=== PATIENT | female | born 1935 | race Caucasian/White ===

== ENCOUNTER → 2017-02-04 | Outpatient (CLI) | payer OTHER, MEDICARE ==
[~2017-02-04] VITALS: Ht 165.1 cm; Wt 73.9 kg
[~2017-02-04] MED LIST: ACID CONTROL75 MG PO; ADULT LOW DOSE81 MG PO; ALDACTONE25 MG PO; ASPIRIN EC325 M1 PO; ASPIRIN EC81 M1 PO; CARDIZEM CD 30300 M1 PO; CARDIZEM CD240 MG PO; CEFDINIR300 MG PO; CELEXA40 MG PO; CIPROFLOXACIN500 M1 PO; CLONAZEPAM 0.50.5 M1 PO; CLONAZEPAM 1 MG1 M1 PO; COUMADIN 1MG TAB1 M1 PO; COUMADIN 2.5MG2.5 M1 PO; COUMADIN 5 MG TA5 M1 PO; DILTIAZEM 24HR180 MG PO; DILTIAZEM ER120 M1 PO; ENALAPRIL MALEA10 M1 PO; HYDROCODON-ACE1 EAC8 PO; HYDROCODONE-AP1 EA11 PO; LEVAQUIN 500 M500 M2 PO; LEVOTHYROXINE 0.1 MG PO; MELOXICAM7.5 MG PO; METOPROLOL SUCC25 M1 PO; MOBIC15 MG PO; NABUMETONE 500500 M1 PO; NORCO 10-325 T1 EACH PO; NORCO 5-325 TA1 EACH PO; NORCO 7.5-3251 EACH PO; OMEPRAZOLE 20 M20 MG PO; PACERONE 200 M200 M1 PO; PACERONE 200 M200 MG PO; PAXIL10 MG; PERCOCET 10-321 EACH PO; PERCOCET 5-3251 EACH PO; PRAVACHOL40 MG PO; PREDNISONE 10 M10 MG PO; PROZAC 10 MG CA10 M1 PO; RESTORIL30 MG PO; SAVAYSA15 MG PO; SYMBICORT160 MCG/4. INH; TUMS PO; VASOTEC10 MG PO; VITAMIN B-12500 MCG PO; VITAMIN D1000 UNI1 PO; ZOLOFT100 MG PO; [UNRECOGNIZED DRUG - OTHER]; [UNRECOGNIZED DRUG - OTHER] PO
--- NOTE | ~2017-02-04 | HPC ---
[facility] [place] [address] PAIN MANAGEMENT CONSULTATION Name: PERLA RIOS Room #: REG EDGAR Zapata#: [id number] Admission: 02/04/17 Attend Phys: Sorin Fu DO Discharge: Date of : 35 Report #: [id number] THIS REPORT FOR: //name// CC: Keith Fu HISTORY OF PRESENT ILLNESS: The patient is an 81-year-old female, prior seen in the pain clinic 10/11/2016 being treated for lumbosacral spondylosis, SI joint dysfunction requiring complex medication management. She was continued on hydrocodone 10/325 one tablet 2-3 times a day, limit 60 tablets, given bilateral SI joint injections. She prior had bilateral SI joint injections back in 12/2015. She is sent to physical therapy for core strengthening. She returns to pain clinic today. We had a prolonged visit from 12:45-13:15. Ultimately taken to the procedure room at 13:16. The patient notes several things have changed since we last saw her. She is having some curious loss of balance and vertigo. She does not report presyncopal type symptoms, but notes she fell a week ago. Does have ecchymosis on left shoulder, some exacerbation of back pain. She notes her right ankle feels numb. She rates her pain at 10 on a 0-10 visual analog scale, sharp, aching, burning, again primarily low back, right leg with some pain in the left shoulder as well. PHYSICAL EXAMINATION: GENERAL: Shows 81-year-old female, BMI is 27.1 kilograms per meter squared. VITAL SIGNS: Stable as noted in the EMR. NEUROLOGIC: Cranial 2-12 are grossly intact. EYES: Pupils equal, reactive to light and accommodation. Extraocular muscles are intact. I can elicit no nystagmus; however, when the patient stands she starts to have a little bit of drift with her arms extended and eyes closed, she easily loses balance. Gait is a little bit ataxic. Lower extremity strength remains generally preserved. Very tender over the SI joints with positive Felix test bilaterally. Little tender in the midline, but nothing specifically compatible with what I would expect to see with an acute compression fracture. Concern for pelvic fracture with the following increasing pain though palpation over the ischial tuberosity do not exacerbate pain and movement of the SI joints does exacerbate pain. Lower extremity strength is diminished, but symmetric. ASSESSMENT: Lumbosacral spondylosis, SI joint dysfunction, chronic pain syndrome requiring complex medication management. The patient has started to take hydrocodone a little more aggressively requiring 2 tablets at a time. RECOMMENDATIONS: 1. X-ray of the pelvis to [place] [address] PAIN MANAGEMENT CONSULTATION Name: BLANCAPERLA Room #: REG EDGAR Zapata#: [id number] Admission: 02/04/17 Attend Phys: Sorin Fu DO Discharge: Date of : 35 Report #: [id number] 2. We will refer to Dr. Kelly for evaluation of this concerning loss of balance, ataxia and falls. 3. Trial opiate rotation from hydrocodone 10/325 to Percocet 10/325, limit 75 tablets, demand the patient only take 1 tablet q. 4-6 hours, not 2 tablets at a time. 4. Bilateral SI joint injection under fluoroscopy today. Resume anticoagulant. She has been off this for 2 days. We would like to see patient back in 2 weeks for reevaluation. We will have her hold for Xeralto for 2 days prior to that office visit, we may consider caudal injection if indicated. We will review diagnostic findings at that time. Hopefully, she will get in to see Dr. Kelly to evaluate the untoward balance issues and ataxia. ASSESSMENT: Bilateral SI joint dysfunction. PROCEDURE: Bilateral SI joint injections under fluoroscopy. PROCEDURE NOTE: After written and informed consent was obtained including risk of infection, nerve trauma, increased pain and weakness, the patient wishes to proceed. The patient was taken to the fluoroscopy suite, placed in the prone position. The sacroiliac joint was visualized using the C-arm, turned in an oblique fashion to align the joint. The skin overlying the area was cleansed with ChloraPrep. Skin wheal with Xylocaine was raised. A 22 gauge spinal needle was inserted into the inferior aspect of the joint. A low volume extension tubing was then attached to the needle after the stylet was removed. Negative aspiration was accomplished. A 1 mL of Omnipaque was injected which showed spread within the SI joint. 40 mg triamcinolone plus 2 mL of 0.5% preservative-free bupivacaine was injected into the joint. Needle was removed. Attention was then turned to the contralateral joint which was treated in an identical fashion. After both needles were removed the prep was washed off. Two Band-Aids were applied over the puncture sites. The patient was allowed to ambulate to the recovery room, monitored for an appropriate period of time, discharged in good and stable condition. <ELECTRONICALLY SIGNED> By: Sorin Fu DO 02/06/17 0736 [id number] Sorin Fu DO /nt
[2017-02-04 12:41] VITALS: BP 128/80
== END ==
LOC: PAIN 07:13
DX: M53.3 Sacrococcygeal disorders, not elsewhere classified (principal); M47.817 Spondylosis without myelopathy or radiculopathy, lumbosacral region; G89.4 Chronic pain syndrome; I10 Essential (primary) hypertension; Z87.891 Personal history of nicotine dependence
CPT/HCPCS: G0260

== ENCOUNTER → 2017-02-18 | Outpatient (CLI) | payer OTHER, MEDICARE ==
[~2017-02-18] VITALS: Ht 167.6 cm; Wt 73.9 kg
--- NOTE | ~2017-02-18 | HPC ---
[facility] [place] [address] PAIN MANAGEMENT CONSULTATION Name: PERLA RIOS Room #: REG EDGAR Zapata#: [id number] Admission: 02/18/17 Attend Phys: Sorin Fu DO Discharge: Date of : 35 Report #: [id number] THIS REPORT FOR: //name// CC: Keith Fu The patient is an 81-year-old female well known to the pain clinic, being treated for lumbosacral spondylosis, lumbar radiculopathy secondary to spinal stenosis, component of ataxia, requiring complex medication management. Last seen in pain clinic 02/04/2017. We continued opiate pain medication. We switch, however, from hydrocodone to oxycodone, limit #75 tablets for 30 days. She was given bilateral SI joint injections at that time. ____ caudal injection under fluoroscopy today. In the interval since I last saw her, she was seen in the ER 02/14/2017 having fallen. She had a closed head injury, but no pathology was noted on diagnostic studies. The ER reports that she may have been taking oxycodone and hydrocodone. The patient notes that this is a completely incorrect. She stopped taking hydrocodone and in fact has none of those tablets, it is taking oxycodone overall for pain. She notes pain remains problematic in the low back radiating into the buttocks. We do want him to move forward with the caudal injection, but she forgot to stop her blood thinner. I have given a referral to Dr. Kelly for evaluation of ataxia. Given that they have not call her back in 4 weeks, I gave her referral to neurology for evaluation of ataxia. I will plan on moving forward with a caudal injection under fluoroscopy, off Savaysa for 3 days. PHYSICAL EXAMINATION: Shows an 81-year-old female, BMI is 26.3 kilograms per meter squared. Vital signs stable as noted in the EMR. Rises from chair using armrest. Diffuse tenderness across the low back. Does have still moderate ataxia, positive straight leg raise bilaterally, diffuse tenderness across the low back. X-rays of the pelvis 02/04/2017, following the patient's prior fall show no acute osseous pathology, she does have some chest wall pain. Fortunately, there are no rib fractures. ASSESSMENT: Symptomatic lumbar radiculopathy secondary to spinal stenosis. RECOMMENDATION: Proceed with epidural injection under fluoroscopy (____) off Savaysa 3 days. By: [id number] Sorin Fu, /nt
[2017-02-18 13:00] VITALS: BP 162/81
== END | disposition home or self-care (01) ==
LOC: PAIN 06:52
DX: M48.06 Spinal stenosis, lumbar region (principal); G89.29 Other chronic pain; M47.27 Other spondylosis with radiculopathy, lumbosacral region; F11.20 Opioid dependence, uncomplicated; Z87.891 Personal history of nicotine dependence

== ENCOUNTER → 2017-02-22 | Outpatient (CLI) | payer OTHER, MEDICARE ==
[~2017-02-22] VITALS: Ht 152.4 cm; Wt 72.8 kg
--- NOTE | ~2017-02-22 | HPC ---
[facility] [address] [place] [address] PAIN MANAGEMENT CONSULTATION Name: PERLA RIOS Room #: REG LUIGIMamta Zapata#: [id number] Admission: 02/22/17 Attend Phys: Sorin Fu DO Discharge: Date of : 35 Report #: [id number] THIS REPORT FOR: //name// CC: Keith Fu HISTORY OF PRESENT ILLNESS: The patient is a pleasant 81-year-old female typically treated for lumbar radiculopathy secondary to spinal stenosis, component of lumbosacral spondylosis and concern for increasing ataxia. I had recommended the patient follow up with Dr. Kelly for evaluation of her ataxia. She tells me she feels like she is falling forward, she starts to walk faster to try and catch herself and has fallen multiple times. I have given her balance exercises to do, but she appears to have a central process that I would like to get evaluated. Unfortunately, she has not heard back from Dr. Kelly's office. If she has not heard from Dr. Kelly's office in 1 month, I have suggested she try [facility]. She has not heard back from them either. I have requested last month and again today that dictations go to Dr. Kelly's office. Today, my nurse did specifically faxed to Dr. Kelly's office our 02/18/2017 electronic medical record. I will again request that she follow up for consideration for evaluation for vertigo and ataxia. The patient does have a history of closed head injuries subsequent to a fall on 02/14/2017. ER reports no pathology on diagnostic studies. The patient presents to pain clinic today for prior authorized Caudal epidural injection under fluoroscopy for lumbar radicular pain. The patient has been off Savaysa for 3 days. PHYSICAL EXAMINATION: Again shows pleasant 81-year-old female. No nystagmus, but subjective ataxia. Ongoing pain she rates 5 on a 0-10 visual analog scale, low back, buttocks, right greater than left. ASSESSMENT AND RECOMMENDATIONS: 1. 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 Recommendation: Referred to Dr. Kelly, neurology for further evaluation. I did discuss balance exercises again today. 2. Exacerbation of lumbar spinal stenosis. Recommendation: Caudal epidural injection under fluoroscopy. PROCEDURE NOTE: After written and informed consent was obtained, the patient was taken to fluoroscopy suite, placed in prone position. After sterile prep and drape, skin wheal was raised. A 22-gauge stylet needle was placed to the sacral hiatus in the caudal epidural space. Negative aspiration was accomplished. Triamcinolone 80 mg plus 5 mL of 1% preservative-free Xylocaine was injected. Needle was removed. The area was cleansed, Band-Aids applied. The patient was told to resume Savaysa today. Follow up in 30 days to evaluate efficacy. Contact Dr. Kelly's office next week for appointment. [address] [address] PAIN MANAGEMENT CONSULTATION Name: PERLA RIOS Room #: REG CLMamta Zapata#: [id number] Admission: 02/22/17 Attend Phys: Sorin Fu DO Discharge: Date of : 35 Report #: [id number] I am pleased to note the patient had significant at least transient improvement following the injection, noting her pain was absent on discharge. I pointed out this is likely effect of the local anesthetic. This will recede, we did expect effect of steroid to start within 72 hours. Hopefully, she will start to see some longer lasting ongoing relief at that point. <ELECTRONICALLY SIGNED> By: Sorin Fu DO 02/25/17 0750 1542 0113 Sorin Fu DO /nt
[2017-02-22 12:55] VITALS: BP 172/82
== END | disposition home or self-care (01) ==
LOC: PAIN 07:16
DX: M54.16 Radiculopathy, lumbar region (principal); M48.06 Spinal stenosis, lumbar region; M47.817 Spondylosis without myelopathy or radiculopathy, lumbosacral region; R27.0 Ataxia, unspecified

== ENCOUNTER → 2017-03-07 | Outpatient (CLI) | payer OTHER, MEDICARE | LOC: MRI 13:59 | DX: M54.12 Radiculopathy, cervical region (principal); M54.2 Cervicalgia; R26.0 Ataxic gait ==

== ENCOUNTER → 2017-04-05 | Outpatient (CLI) | payer OTHER, MEDICARE ==
[~2017-04-05] VITALS: Ht 162.6 cm; Wt 72.1 kg
[~2017-04-05] MED LIST changes: +NORCO 10-325 T1 EAC1 PO; +PROZAC10 MG PO; +TRAZODONE HCL100 MG PO
--- NOTE | ~2017-04-05 | HPC ---
[facility] [place] [address] PAIN MANAGEMENT CONSULTATION Name: PERLA RIOS Room #: REG EDGAR Jodi#: [id number] Admission: 04/05/17 Attend Phys: Sorin Fu DO Discharge: Date of : 35 Report #: [id number] THIS REPORT FOR: //name// CC: Keith Fu HISTORY OF PRESENT ILLNESS: The patient is a very pleasant 81-year-old female who unfortunately is having some trouble with ongoing lumbar radicular pain. She had fallen with exacerbation of back pain. I gave her an epidural injection via caudal approach on 02/22/2017 with very good, yet short-term relief. In the interval since we last saw her, she finally got in to see Dr. Kelly actually earlier today. He currently saw her as a walk-in patient. He reviewed all the diagnostic studies and unfortunately feels that likely cause of her ataxia is central and may be a component of Alzheimer's. The patient is little tearful today, frustrated, noting ongoing back pain remains problematic. Pain is in the low back, right hip and leg. PHYSICAL EXAMINATION: Shows an 81-year-old female, BMI is 27.3 kilograms per meter squared. Rises from chair using armrest, modestly antalgic gait. Vital signs are stable. Right leg shows diminished strength compared to left, modestly positive straight leg raise on the right. ASSESSMENT: Symptomatic lumbar radiculopathy. RECOMMENDATIONS: Epidural injection under fluoroscopy today, we will try midline approach, right midline at L5-S1. Follow up in 4 weeks for reevaluation, cancel if doing well. PROCEDURE: Lumbar epidural injection under fluoroscopy. PROCEDURE NOTE: After both written and informed consent to include risk of spinal cord damage, increased pain, weakness and dural puncture, the patient was taken to the fluoroscopy suite, placed in the prone position. After sterile prep and drape, a skin wheal with lidocaine was raised. A 22-gauge epidural Tuohy needle was inserted in the midline at L5-S1 with good loss to resistance. Negative aspiration for cerebrospinal fluid or blood was noted. Then 1 mL of Omnipaque under biplanar fluoroscopy showed good spread within the epidural space. This was followed with 80 mg of triamcinolone plus 1 mL of 1.5% preservative-free Xylocaine, 0.5 mL Xylocaine was then injected to flush the needle; it was removed. The patient was monitored for an appropriate period of time and discharged in good and stable condition. By: [id number] Sorin Fu DO /nt
[2017-04-05 13:48] VITALS: BP 148/68
== END | disposition home or self-care (01) ==
LOC: PAIN 07:12
DX: M54.16 Radiculopathy, lumbar region (principal); G89.29 Other chronic pain; Z87.891 Personal history of nicotine dependence

== ENCOUNTER → 2017-06-17 | Outpatient (CLI) | payer OTHER, MEDICARE ==
[~2017-06-17] VITALS: Ht 162.6 cm; Wt 73.0 kg
--- NOTE | ~2017-06-17 | HPC ---
[facility] [place] [address] PAIN MANAGEMENT CONSULTATION Name: PERLA RIOS Room #: REG LUIGIMamta Zapata#: [id number] Admission: 06/17/17 Attend Phys: Sorin Fu DO Discharge: Date of : 35 Report #: [id number] THIS REPORT FOR: //name// CC: Keith Fu The patient is a very pleasant 81-year-old female typically treated for symptomatic lumbar radiculopathy secondary to spinal stenosis. She was last seen in pain clinic 04/05/2017. Did an epidural injection L5-S1 with good improvement of symptoms. Prior caudal injection really afforded no significant relief. Returns to pain clinic today noting pain from the last injection gave her least 50% relief for about 6 weeks, pain began to recur. She rates her pain; however, 10 at present. She has relocated transiently, she was living with an older daughter, who unfortunately had a brain tumor. It sounds like she had surgery at [facility] and did remarkably well. She was only in the hospital for surgery on Saturday and discharged home on Saturday. Nonetheless, the patient is now living with the younger daughter, giving her older daughter a little time and space at home to recuperate. With physical activity, pain has increased in low back, right hip and leg. Pain is exacerbated with standing, walking and bending. PHYSICAL EXAMINATION: Unchanged from prior visit. GENERAL: This is an 81-year-old female, BMI is 27.6 kilograms per meter squared. VITAL SIGNS: Blood pressure is modestly elevated 173/99, pulse 68, respirations 16. She has been off of her Savaysa now for nearly 7 days. We stressed that she only need to be off about 3 days for injection. We reviewed diagnostic findings noting significant lumbar spondylosis and stenosis. ASSESSMENT: Symptomatic lumbar radiculopathy secondary to spinal stenosis. RECOMMENDATION: Epidural injection under fluoroscopy today at L5-S1. We will renew her hydrocodone 10/325 one tablet 3-4 times a day, limit 100 tablets for 30 days. Follow up simply as needed, resume Savaysa tonight. PROCEDURE: Lumbar epidural injection under fluoroscopy. PROCEDURE NOTE: After both written and informed consent to include risk of spinal cord damage, increased pain, weakness and dural puncture, the patient was taken to the fluoroscopy suite, placed in the prone position. After sterile prep and drape, a skin wheal with lidocaine was raised. A 22-gauge epidural Tuohy needle was inserted in the midline at L5-S1 with good loss to resistance. [address] [address] PAIN MANAGEMENT CONSULTATION Name: PERLA RIOS Room #: REG [facility] Jodi#: [id number] Admission: 06/17/17 Attend Phys: Sorin Fu DO Discharge: Date of : 35 Report #: [id number] Negative aspiration for cerebrospinal fluid or blood was noted. Then 1 mL of Omnipaque under biplanar fluoroscopy showed good spread within the epidural space. This was followed with 80 mg of triamcinolone plus 1 mL of 1.5% preservative-free Xylocaine, 0.5 mL Xylocaine was then injected to flush the needle; it was removed. The patient was monitored for an appropriate period of time and discharged in good and stable condition. <ELECTRONICALLY SIGNED> By: Sorin Fu DO 06/19/17 0801 [id number] 1349 Sorin Fu DO /nt
[2017-06-17 11:12] VITALS: BP 173/99
== END | disposition home or self-care (01) ==
LOC: PAIN 06:40
DX: M48.06 Spinal stenosis, lumbar region (principal); M47.896 Other spondylosis, lumbar region; G89.29 Other chronic pain; Z87.891 Personal history of nicotine dependence; Z98.890 Other specified postprocedural states

== ENCOUNTER → 2017-07-26 | Outpatient (CLI) | payer OTHER, MEDICARE ==
[~2017-07-26] VITALS: Ht 162.6 cm; Wt 70.8 kg
--- NOTE | ~2017-07-26 | HPC ---
[facility] [address] [place] [address] PAIN MANAGEMENT CONSULTATION Name: PERLA RIOS Room #: REG LUIGIMamta Zapata#: [id number] Admission: 07/26/17 Attend Phys: Sorin Fu DO Discharge: Date of : 35 Report #: [id number] THIS REPORT FOR: //name// CC: Keith Fu HISTORY OF PRESENT ILLNESS: The patient is an 81-year-old female who typically treated for lumbar radiculopathy secondary to spinal stenosis. Comorbidities include some significant issues with ataxia. Last seen in pain clinic on 06/17/2017 with epidural injection at L5-S1. Continued hydrocodone 10/325 up to one tablet 3-4 times a day, limit 100 tablets. The patient prior had a caudal injection with normal efficacy. She notes that the epidural injection at last visit afforded 50% relief, but again for only 1-2 days. She notes pain is primarily in low back and hips, right greater than left. Does have some paresthesia down in the right foot. She notes sharp, aching pain with some burning and numbness. PHYSICAL EXAMINATION: Shows an 81-year-old female, BMI is 26.8 kg/m2. Blood pressure is elevated today at 193/92, pulse 74, respirations 15. Rises from chair using armrest, modestly antalgic gait. Does have tenderness over the SI joints with positive Felix test bilaterally. Lower extremity strength is diminished, but symmetric. Still modestly positive straight leg raise on the right. Lumbar flexion is limited. ASSESSMENT: Lumbar radiculopathy secondary to spinal stenosis, component of ataxia with new diagnosis of sacroiliac mediated pain. RECOMMENDATIONS: 1. Bilateral SI joint injection under fluoroscopy today. 2. Last MRI was from 2008. If the injection today does not afford adequate ongoing relief, we will get a new MRI of the lumbar spine for further evaluation. I did take the liberty of renewing the patient's hydrocodone at 10/325, 100 tablets. Last prescription was generated in March. She uses this fairly infrequently. PROCEDURE: Bilateral SI joint injection under fluoroscopy. PROCEDURE NOTE: After written and informed consent was obtained including risk of infection, nerve trauma, increased pain and weakness, the patient wishes to proceed. The patient was taken to the fluoroscopy suite, placed in the prone position. The sacroiliac joint was visualized using the C-arm, turned in an oblique fashion to align the joint. The skin overlying the area was cleansed with ChloraPrep. Skin wheal with Xylocaine was raised. A 22 gauge spinal needle was inserted into the inferior aspect of the joint. A low volume extension tubing was then attached to the needle after the stylet was removed. [address] [address] PAIN MANAGEMENT CONSULTATION Name: PERLA RIOS Room #: REG EDGAR Zapata#: [id number] Admission: 07/26/17 Attend Phys: Sorin Fu DO Discharge: Date of : 35 Report #: [id number] Negative aspiration was accomplished. A 1 mL of Omnipaque was injected which showed spread within the SI joint. 40 mg triamcinolone plus 2 mL of 0.5% preservative-free bupivacaine was injected into the joint. Needle was removed. Attention was then turned to the contralateral joint which was treated in an identical fashion. After both needles were removed the prep was washed off. Two Band-Aids were applied over the puncture sites. The patient was allowed to ambulate to the recovery room, monitored for an appropriate period of time, discharged in good and stable condition. Fluoroscopy time was under 10 seconds. By: [id number] Sorin Fu DO /nt
[2017-07-26 10:20] VITALS: BP 193/92
== END | disposition home or self-care (01) ==
LOC: PAIN 07:35
DX: M53.3 Sacrococcygeal disorders, not elsewhere classified (principal); M48.06 Spinal stenosis, lumbar region; M54.16 Radiculopathy, lumbar region; R27.0 Ataxia, unspecified; G89.29 Other chronic pain; Z87.891 Personal history of nicotine dependence; Z98.890 Other specified postprocedural states

== ENCOUNTER → 2017-08-08 | Outpatient (CLI) | payer OTHER, MEDICARE | LOC: MRI 14:56 | DX: M48.06 Spinal stenosis, lumbar region (principal); M54.16 Radiculopathy, lumbar region ==

== ENCOUNTER → 2018-01-31 | Outpatient (CLI) | payer OTHER, MEDICARE ==
[~2018-01-31] VITALS: Ht 162.6 cm; Wt 72.0 kg
[~2018-01-31] MED LIST changes: +AMBIEN 5 MG TABL5 MG PO; +ELIQUIS5 MG PO; +TENORMIN25 MG PO
--- NOTE | ~2018-01-31 | HPC ---
Formerly [facility] [place] [address] [place] [address] PAIN MANAGEMENT CONSULTATION Name: PERLA RIOS Room #: REG EDGAR Zapata#: [id number] Admission: 01/31/18 Attend Phys: Sorin Fu DO Discharge: Date of : 35 Report #: [id number] THIS REPORT FOR: //name// CC: Keith Fu The patient is an 82-year-old female last seen in the pain clinic back in September. She was given a prescription for hydrocodone 10/325, 100 tablets, 4 released at that time and a 4-week release prescription. Those 200 tablets have lasted these past 4 months. She uses 1 or 2 hydrocodone a day for ongoing pain concerns. She returns to pain clinic today noting pain is in primarily right hip, leg and foot. She notes it is chronic aching, rates it 3-4 on a VAS, exacerbated with standing and walking. Gets some relief with sitting and resting. She actually looks better than she has in some time. She had been quite sick, but she has done a lot of physical therapy. She presents to pain clinic today in the presence of her daughter who is supportive. She tells me sadly that her dog she had for 14-1/2 years had to be put down due to a cancer, but she is introspective about this, noting that the dog gave her good friendship and she loved the dog. She is living with one of her daughters. She lives in the second floor and she noted that when she had been sick late last year, she was unable to take the dog outside, so she is not desirous of getting another dog. Otherwise, again she looks alert and oriented. She appears much more upbeat than she has in the past. BMI is 27.2 kilograms per meter squared. Blood pressure 149/76, pulse 71, respirations 18. Subjective pain score is only 3-4 on a VAS, which is low for her. She uses a cane for balance. She has not fallen since we last saw her. She is on Savaysa for history of blood clots. She is hypertensive as well. Medication list was reconciled. She has been on opiate therapy for greater than 6 months. Again, uses hydrocodone 0-3 a day. Rises from chair using armrest. Gait is tandem. Lower extremity strength is preserved. Little diffuse tenderness across the low back. I had prior treated for SI mediated pain. That is actually fairly nominal at this time We reviewed the fact that opiate medications are being used to provide analgesia adequate to support activities of daily living, not attempting to achieve a specific pain score on the 0-10 Visual Analog Scale. The current opiate medications are providing sufficient analgesia to allow the patient to participate in activities of daily living. The patient is not exhibiting any aberrant behavior suggestive of drug diversion. The patient is not having any adverse reactions to medications. The patient is not suffering from daytime somnolence or mental acuity changes. The patient is managing opiate-induced constipation with appropriate zjzp-jzc-uleoctp agents and dietary considerations. The patient was counseled on concern for caution with operating a motor vehicle while using opiate medications. A physical exam was performed and the patient's functional status was evaluated. All patients with back pain were advised against the bed rest greater than [address] [address] PAIN MANAGEMENT CONSULTATION Name: PERLA RIOS Room #: REG EDGAR Zapata#: [id number] Admission: 01/31/18 Attend Phys: Alingeorge Campo DO Tank Discharge: Date of : 35 Report #: [id number] days and were advised to return to normal activities. Pain score assessment was noted and the treatment plan was reviewed with the patient. All current medications, both prescribed and OTC were reviewed and reconciled on the electronic medical record. Tobacco screening was accomplished and smoking cessation was advised when indicated. BMI was noted and diet/exercise modification was recommended for all patients following outside normal parameters. I reviewed with the patient today their responsibilities to safeguard prescription medications, reviewed their responsibility to utilize medications only as prescribed by the physician. They are to seek and receive pain medications only from 1 physician group ( [facility]). They are to use 1 pharmacy and keep the clinic informed if they change pharmacies. Their responsibilities include making followup visits in a timely fashion and to avoid abrupt discontinuation of medication usage. Their responsibilities further include bringing their medications (bottles from the pharmacy with residual pills) to the visit for possible confirmation of pill counts and the patient understands it is their responsibility to submit to random drug screens to ensure both that the medications prescribed are present, and that no other controlled substances are present. All prescriptions provided today were generated electronically. ASSESSMENT: Axial back pain, sacroiliac joint dysfunction, history of lumbar radiculopathy and spinal stenosis, stable on baseline medications. RECOMMENDATIONS: I have taken the liberty of renewing hydrocodone 10/325 one tablet 3-4 times a day, limit 100 tablets. I gave her 2 prescriptions, 1 released today, 1 release in 4 weeks. I will see her simply on an as needed basis. <ELECTRONICALLY SIGNED> By: Sorin Fu DO 02/03/18 0813 [id number] Sorin Fu, DO /nt
[2018-01-31 14:37] VITALS: BP 149/76
== END ==
LOC: PAIN 07:02
DX: M53.3 Sacrococcygeal disorders, not elsewhere classified (principal); M54.16 Radiculopathy, lumbar region

== ENCOUNTER → 2018-08-14 | Outpatient (CLI) | payer OTHER, MEDICARE | LOC: RAD 13:22 | DX: J84.10 Pulmonary fibrosis, unspecified (principal); I70.0 Atherosclerosis of aorta; I10 Essential (primary) hypertension; I48.91 Unspecified atrial fibrillation ==

== ENCOUNTER → 2018-12-24 | Outpatient (CLI) | payer OTHER, MEDICARE ==
[~2018-12-24] VITALS: Ht 162.6 cm; Wt 75.0 kg
[~2018-12-24] MED LIST changes: +HYDROCODON-ACE1 EAC5 PO; -LEVOTHYROXINE 0.1 MG PO; +LEVOXYL112 MCG PO
[2018-12-24 11:12] VITALS: BP 162/84
--- NOTE | 2018-12-24 11:34 | NUR ---
Pain Clinic Assessment: 1. History of Osteoarthritis: back History of Rheumatoid Arthritis: none 2. Height: 5 ft. 4 in. 162.6 cm. Weight: 165.4 lb. oz. 75.025 kg. Patient's BMI: 28.4 3. Vital Signs: BP: 162/84 Pulse: 65 Resp: 18 Temp: 02 Sat: 100 ECG Mon: 4. Pain Intensity: 5-6 5. Fall Risk: Dizziness: N Needs help standing or walking: N Fallen in the last 3 months: N Fall risk comments: 6. Patient on Blood Thinner: eliquis 7. History of Hypertension: Y 8. Opioid Therapy greater than 6 weeks: Y Opiate Contract Signed: 07/30/18 9. Risk Assessment Tool Provided: Opioid Risk Tool 10. Functional Assessment Tool: 56 11. Recreational Drug Use: Never Drug Type: Tobacco Use: Former Smoker Tobacco Type: Amount or Packs/day: How Many Years: Alcohol Use: Yes Frequency: Daily Quant: 1 DRINK A DAY
--- NOTE | 2018-12-25 08:41 | HPC ---
[facility] [address] [place] [address] PAIN MANAGEMENT CONSULTATION Name: PERLA RIOS Room #: REG EDGAR Zapata#: [id number] Admission: 12/24/18 Attend Phys: Ju Peraza Discharge: Date of : 35 Report #: [id number] THIS REPORT FOR: //name// CC: Ju Peraza Keith Galindo DATE OF SERVICE: 12/24/2018 CHIEF COMPLAINT: Low back pain and right leg pain. HISTORY OF PRESENT ILLNESS: This is a very pleasant 83-year-old female who returns to the pain clinic today for followup for her medications. She tells me that she has ongoing low back pain occasionally down her legs. She has been thinking about possibly having another epidural. She tells me that they had gotten so they were not as helpful, so she quit getting epidurals, but wondering if maybe she should try it again. She does take hydrocodone very sparingly, sometimes no pills a day, sometimes 2 pills a day. Last visit that we have seen her for medications was in July. The patient tells me that her worst pain is when she is standing too long like when she is cooking or doing dishes. Her pain is much better when she is seated. She denies any constipation issues or daytime sleepiness related to any pain medicines. ALLERGIES: No known drug allergies. MEDICATIONS: 1. Prednisone 10 mg daily. 2. Amiodarone 200 mg daily. 3. Vasotec 10 mg daily. 4. Eliquis 5 mg b.i.d. 5. Hydrocodone 10/325 p.r.n. 6. Levoxyl 112 mcg daily. PQRS: 1. She has history of osteoarthritis in her lower back. She denies rheumatoid arthritis. 2. Height is 5 feet 4 inches, weight is 155, BMI is 28.4. 3. Vital signs 162/84, pulse 65, respirations 18, oxygen sat 100. 4. Pain score 5/6. 5. Fall risk. Denies dizziness, is not being helped walking or standing, has not fallen in the last 3 months. 6. The patient does take Eliquis for a blood thinner and does take hypertension medicines. 7. Opioid therapy is greater than 6 weeks; therefore an opioid signed contract is on the chart. 8. Risk assessment tool is low. Her functional assessment 56/70. 9. She does not use recreational drugs. She is a former smoker and drinks [address] [address] PAIN MANAGEMENT CONSULTATION Name: PERLA RIOS Room #: REG CL Jodi#: [id number] Admission: 12/24/18 Attend Phys: Ju Peraza Discharge: Date of : 35 Report #: [id number] drink every day of alcohol. We checked the prescription monitoring system: The patient fills very sporadically from us since she takes her medicine very rarely, but she has no other providers providing pain medication for her. PHYSICAL ASSESSMENT: GENERAL: This is a well-developed, well-nourished white female who appears her stated age. She is alert and orientated x 3. Her affect is appropriate. HEENT: Normocephalic, atraumatic. Extraocular eye muscles are intact. NECK: Without adenopathy or JVD. MUSCULOSKELETAL: Some evidence of scoliosis without lordosis in her lower back. The patient complains of discomfort across her lower back axial back area. Denies leg pain today. Lower extremity strength judged to be 5/5 in all major muscle groups. The patient walks with a slightly antalgic gait. IMPRESSION: 1. Spinal stenosis. 2. Hypertension. 3. Atrial fibrillation. 4. Depression. 5. History of pancreatitis. We reviewed the fact that opiate medications are being used to provide analgesia adequate to support activities of daily living, not attempting to achieve a specific pain score on the 0-10 Visual Analog Scale. The current opiate medications are providing sufficient analgesia to allow the patient to participate in activities of daily living. The patient is not exhibiting any aberrant behavior suggestive of drug diversion. The patient is not having any adverse reactions to medications. The patient is not suffering from daytime somnolence or mental acuity changes. The patient is managing opiate-induced constipation with appropriate waiu-vjc-fitbpum agents and dietary considerations. The patient was counseled on concern for caution with operating a motor vehicle while using opiate medications. A physical exam was performed and the patient's functional status was evaluated. All patients with back pain were advised against the bed rest greater than 4 days and were advised to return to normal activities. Pain score assessment was noted and the treatment plan was reviewed with the patient. All current medications, both prescribed and OTC were reviewed and reconciled on the electronic medical record. Tobacco screening was accomplished and smoking cessation was advised when indicated. BMI was noted and diet/exercise modification was recommended for all patients following outside normal parameters. I reviewed with the patient today their responsibilities to [facility] [address] [place] [address] PAIN MANAGEMENT CONSULTATION Name: PERLA RIOS Room #: REG EDGAR Zapata#: [id number] Admission: 12/24/18 Attend Phys: Ju Peraza Discharge: Date of : 35 Report #: [id number] prescription medications, reviewed their responsibility to utilize medications only as prescribed by the physician. They are to seek and receive pain medications only from 1 physician group ( [facility]). They are to use 1 pharmacy and keep the clinic informed if they change pharmacies. Their responsibilities include making followup visits in a timely fashion and to avoid abrupt discontinuation of medication usage. Their responsibilities further include bringing their medications (bottles from the pharmacy with residual pills) to the visit for possible confirmation of pill counts and the patient understands it is their responsibility to submit to random drug screens to ensure both that the medications prescribed are present, and that no other controlled substances are present. All prescriptions provided today were generated electronically. RECOMMENDATIONS: 1. We discussed treatment options with the patient today. At this time, she would like to continue her hydrocodone use. She does this very sparingly 0-2 mg, 2 tablets a day. Scripts have been lasting about 3 months at a time. Scripts were provided for hydrocodone 10/325, #100 for release today and 4 week. 2. The patient did talk about possible trying to have another injection to see if that would help some of her back pain. She thinks that they had gotten so they were not as effective, but would like to try again. I instructed the patient to make an appointment with Dr. Louis when she is ready to have that epidural and that she will need to be off her Eliquis for at least 3 days prior to an injection. She verbalizes understanding and will call in the spring time to make that appointment. 3. The patient was seen in collaboration today with Dr. Maia Louis. <ELECTRONICALLY SIGNED> By: Ju Peraza 12/25/18 0841 [id number] Ju Peraza /juju
== END ==
LOC: PAIN 07:05
DX: M48.061 Spinal stenosis, lumbar region without neurogenic claudication (principal); I10 Essential (primary) hypertension; I48.91 Unspecified atrial fibrillation; F32.9 Major depressive disorder, single episode, unspecified; Z79.891 Long term (current) use of opiate analgesic

== ENCOUNTER → 2019-03-25 | Outpatient (CLI) | payer OTHER, MEDICARE ==
[~2019-03-25] VITALS: Ht 162.6 cm; Wt 75.3 kg
--- NOTE | ~2019-03-25 | HPC ---
[facility] [address] [place] [address] PAIN MANAGEMENT CONSULTATION Name: PERLA RIOS Room #: REG EDGAR Jodi#: [id number] Admission: 03/25/19 ������������������ Attend Phys: Mona Louis MD Discharge: ������������������ Date of : 35 Report #: [id number] THIS REPORT FOR: //name// CC: Mona Galindo DATE OF SERVICE: 03/25/2019 CHIEF COMPLAINT: I would like to consider injection for my back pain. I have a lot of pain after standing. HISTORY: The patient is a very pleasant an 83-year-old female who has been followed in the Pain Clinic because of chronic pain. She does have spinal stenosis and has had pain, which has been quite problematic. She has undergone epidural steroid injections. Does use hydrocodone medications on occasion. She states that it is getting more and more difficult to engage in activities of daily living, such as washing dishes, doing cooking activities because of the pain associated with standing. She states that she often has to perform these activities now more in a seated position. She has returned to the Pain Clinic today for an injection. Denies any trauma or problems with medications with the injections in the past. ALLERGIES: No known drug allergies. MEDICATIONS: Prednisone 10 mg daily, amiodarone 200 mg, Vasotec 10 mg, Eliquis 5 mg b.i.d., hydrocodone 10/325, and Levoxyl 112 mcg daily. PAIN CLINIC ASSESSMENT/PQRS: 1. The patient has a history of osteoarthritis involving her lower back. She complains of spinal stenosis in her back with pain in her lower extremity. The patient is not being treated for rheumatoid arthritis. 2. Height 5 feet 4 inches, weight 166 pounds, BMI is 28.5. 3. Vital Signs: Blood pressure 196/85, pulse 95, respiratory rate 16, room air saturation 99%. 4. Pain intensity, 10/10. 5. Fall risk. The patient has not fallen in the last 3 months. 6. Blood thinner. The patient is on a blood thinning medication Eliquis. She has not taken the medication for the last 3 days. 7. History of hypertension. The patient is being treated for hypertension. 8. Opiates greater than 6 weeks. The patient receives her medication from one source, the Pain Clinic. 9. Risk assessment tool, low for opioid use risk. 10. Functional assessment tool, 56/70. 11. Recreational drug use. The patient denies. 12. Tobacco: The patient is a former smoker. 13. Alcohol. The patient drinks 1-2 [place] [address] PAIN MANAGEMENT CONSULTATION Name: PERLA RIOS [id number] Admission: 03/25/19 ������������������ Attend Phys: Mona Louis MD Discharge: ������������������ Date of : 35 Report #: [id number] PHYSICAL EXAMINATION: GENERAL: The patient is a well-developed, well-nourished white female. Appears her stated age. She is alert and oriented x 3. HEENT: The patient has a reddened right eye. She denies any trauma. She has not had this in the past. Does not recall falling. She states that it has been red for the last few days. It is not itchy. It is not very painful. She feels that the redness is beginning to and continues to resolve. There is no problem with her vision or changes in the vision. EXTREMITIES: Upper extremity muscle strength judged to be 4+/5 for the upper extremity. Lower extremity muscle strength is judged to be ____ lower extremity. The patient moves with a slow but relatively easy gait. Notes that her pain increases when she stands for more than about 5-10 minutes. IMPRESSION: 1. Spinal stenosis. 2. Hypertension. 3. Chronic atrial fibrillation. 4. Depression. 5. History of pancreatitis. RECOMMENDATIONS: We discussed treatment options with the patient. Risk and benefits of an epidural steroid injection were discussed. The patient has stopped taking her Eliquis. She has desired to undergo an epidural injection. She does have the concerning redness of her right eye. It does look quite red, particularly in the lower quadrants. She is not having any problem with her vision. We discussed the possible complications of an injection. Given that she does have this redness in her eye, I think to wait until this has resolved would be the reasonable thing to do at this juncture. Given that her eyes were red and appears to have bled underneath, I would recommend that she check with her primary physician Dr. Galindo or her dealership manager as to whether she should resume use of the Eliquis at this juncture or should she stay on an aspirin regimen for a few days until this clears up. She states that she would follow up with them. She will return to the Pain Clinic. At which time, we will consider an epidural steroid injection. We also discussed the benefits of the patient's standing with 1 foot on a wiser of about 6 inches to change the position of her pelvis. Sometimes standing in this position with 1 foot on a stool can change the position of the pelvis; therefore, opening up the spaces in the lower portion of the back and enabling the patient's to get more done. She can then shift her weight from the left to the right side, changing her feet on the stool. Hopefully, she finds that this is beneficial and she was able to get more complex with less pain and discomfort. [facility] [address] [place] [address] PAIN MANAGEMENT CONSULTATION Name: PERLA ROIS Room #: REG CL Eileen.#: [id number] Admission: 03/25/19 ������������������ Attend Phys: Mona Louis MD Discharge: ������������������ Date of : 35 Report #: [id number] We would like to thank you for letting us participate in her care. We hope she continues to improve. ��������������������������������������������� ���������������������������������������� By: ��������������������������������������������� 1840 [id number] Mona Louis MD /nt
[2019-03-25 11:08] VITALS: BP 196/85
--- NOTE | 2019-03-25 11:11 | NUR ---
Pain Clinic Assessment: 1. History of Osteoarthritis: back History of Rheumatoid Arthritis: none 2. Height: 5 ft. 4 in. 162.6 cm. Weight: 166.0 lb. oz. 75.297 kg. Patient's BMI: 28.5 3. Vital Signs: BP: 196/85 Pulse: 95 Resp: 16 Temp: 02 Sat: 99 ECG Mon: 4. Pain Intensity: 10 5. Fall Risk: Dizziness: N Needs help standing or walking: N Fallen in the last 3 months: N Fall risk comments: 6. Patient on Blood Thinner: sterlingquis 7. History of Hypertension: Y 8. Opioid Therapy greater than 6 weeks: Y Opiate Contract Signed: 07/30/18 9. Risk Assessment Tool Provided: Opioid Risk Tool 10. Functional Assessment Tool: 56 11. Recreational Drug Use: Never Drug Type: Tobacco Use: Former Smoker Tobacco Type: Amount or Packs/day: How Many Years: Alcohol Use: Yes Frequency: Daily Quant: 1-2
== END ==
LOC: PAIN 07:01
DX: M48.061 Spinal stenosis, lumbar region without neurogenic claudication (principal); I10 Essential (primary) hypertension; I48.2 Chronic atrial fibrillation; F32.9 Major depressive disorder, single episode, unspecified; Z87.19 Personal history of other diseases of the digestive system; Z79.899 Other long term (current) drug therapy

== ENCOUNTER → 2019-03-27 | Outpatient (CLI) | payer OTHER, MEDICARE ==
[~2019-03-27] VITALS: Ht 162.6 cm; Wt 75.3 kg
--- NOTE | ~2019-03-27 | HPC ---
[facility] [place] [address] PAIN MANAGEMENT CONSULTATION Name: PERLA RIOS Room #: REG [facility] Jodi#: [id number] Admission: 03/27/19 ������������������ Attend Phys: Mona Louis MD Discharge: ������������������ Date of : 35 Report #: [id number] THIS REPORT FOR: //name// CC: Mona Galindo DATE OF SERVICE: 03/27/2019 FOLLOWUP HISTORY: The patient has returned to the pain clinic for treatment. She is an 83-year-old female who has been followed in the pain clinic. She suffers from chronic pain. She has some spinal stenosis symptomatology as well as had some sacroiliac joint problems. She was noted to have ____ episode in her right eye. There was some redness under the sclerae. She contacted her physicians. She was seen by an medicine assistant and it appears that her right bleed in the area of her eye is resolving. No significant pathology has been found. She is feeling that she could undergo steroid injection at this point. She has returned today for the injection in the low back area. Places that her most problematic are the left SI joint area and she has sacroiliac joint area as well as in the right sacroiliac joint area. She would like to have an injection today. ALLERGIES: No known drug allergies. CURRENT MEDICATIONS: Prednisone 10 mg daily, amiodarone 200 mg, Vasotec 10 mg, Eliquis 5 mg b.i.d., hydrocodone 10/325, Levoxyl 112 mcg daily. PAIN CLINIC ASSESSMENT/PQRS: 1. The patient has a history of osteoarthritis involving her low back. She complains of spinal stenosis in her low back area as well as some SI joint pain. She has not been treated for rheumatoid arthritis. 2. Height 5 feet 4 inches, weight 166 pounds, BMI is 28.5. 3. Vital Signs: Blood pressure 146/55, respiratory rate 20, room air saturation 100. 4. Pain intensity 05/20. 5. Fall history: The patient has not fallen in the last 3 months. 6. Blood thinner. The patient is not on a blood thinning medication today because she has stopped it. 7. Hypertension. The patient is being treated for hypertension. 8. Opioid greater than 6 weeks. The patient receives hydrocodone p.r.n. to help control her pain. 9. Risk assessment tool, low for opioid use. 10. Functional assessment 56/70. 11. Recreational drug use. The patient denies use of recreational drugs. 12. Alcohol. The patient occasionally drinks alcoholic beverages. PHYSICAL EXAMINATION: [address] [address] PAIN MANAGEMENT CONSULTATION Name: PERLA RIOS Room #: REG [facility] Jodi#: [id number] Admission: 03/27/19 ������������������ Attend Phys: Mona Louis MD Discharge: ������������������ Date of : 35 Report #: [id number] GENERAL: The patient is a well-developed, well-nourished white female. Appears her stated age. She is alert and oriented x 3. Her affect is appropriate. Speech is fluent. HEENT: Normocephalic, atraumatic. Extraocular eye muscles intact. Sclerae nonicteric. Mucous membranes are moist. The patient has some resolving redness in the right sclerae, it is not painful. Again, the patient feels that it is healing quite nicely. She has returned today because of pain and discomfort in the lower portion of her back in the left as well as in the right SI joint. Pramod positive in these areas. MUSCULOSKELETAL: Muscle strength in lower extremity is judged to be 4+/5 for the major muscle groups in the lower extremity and 4+5/5 for the major muscle groups in the upper extremity. The patient move with a slow gait. IMPRESSION: 1. Sacroiliac joint dysfunction. 2. Spinal stenosis. 3. Hypertension. 4. Chronic atrial fibrillation. 5. Depression. 6. History of pancreatitis. RECOMMENDATIONS: We discussed treatment options with the patient. Risks and benefits of the procedure were then again reviewed. Injections in the SI joint could cause problems with infection, worsening of pain, no improvement in pain, trauma to the nerves, numbness in the sciatic nerve with weakness until the local anesthetic wears off. The patient elects to proceed. I would like to have the left as well as the right SI joint injected. These have been beneficial in the past. PROCEDURE NOTE: The patient was taken to the procedure area. She was assisted in getting on the examination table. A pillow was placed under her abdomen to facilitate positioning. The patient notes that this did cause some increased discomfort in the chest area. The pillow was removed. The patient's back was sterilely prepped with a Betadine solution and allowed to dry. Fluoroscopy for the right SI joint revealed ____. A 25-gauge needle with 0.25% bupivacaine was then injected. This provided a skin wheal. A 25-gauge spinal needle was then advanced into the area of the SI joint on the right. The patient states that this did reproduce some of the pain that she has been experiencing in that area. Aspiration was negative. A total of 80 mg Depo-Medrol was injected. Total of 3 mL of 0.25% bupivacaine was infiltrated in this area. The contralateral left side has been treated in a like fashion. Skin wheal was placed using a 25-gauge needle. A 25-gauge needle was then advanced into the area of the SI joint. Aspiration was negative. A total of 80 mg triamcinolone was injected into the left side. A 3 mL of 0.25% bupivacaine was injected in the area as well. The patient's pain decreased from 7-0 at the time of discharge. She will follow up in the future as needed. 17 seconds fluoroscopy time was used. [facility] [address] [place] [address] PAIN MANAGEMENT CONSULTATION Name: PERLA RIOS Room #: REG [facility]#: [id number] Admission: 03/27/19 ������������������ Attend Phys: Mona Louis MD Discharge: ������������������ Date of : 35 Report #: [id number] We would like to thank you for letting us participate in her care. We hope she continues to improve. ��������������������������������������������� ���������������������������������������� By: ��������������������������������������������� 1443 0238 Mona Louis MD /nt
[2019-03-27 12:30] VITALS: BP 146/88
--- NOTE | 2019-03-27 12:46 | NUR ---
Pain Clinic Assessment: 1. History of Osteoarthritis: back History of Rheumatoid Arthritis: none 2. Height: 5 ft. 4 in. 162.6 cm. Weight: 166.0 lb. oz. 75.297 kg. Patient's BMI: 28.5 3. Vital Signs: BP: 146/88 Pulse: 55 Resp: 20 Temp: 02 Sat: 100 ECG Mon: 4. Pain Intensity: 7 5. Fall Risk: Dizziness: N Needs help standing or walking: N Fallen in the last 3 months: N Fall risk comments: 6. Patient on Blood Thinner: sterlingquis 7. History of Hypertension: Y 8. Opioid Therapy greater than 6 weeks: Y Opiate Contract Signed: 07/30/18 9. Risk Assessment Tool Provided: Opioid Risk Tool 10. Functional Assessment Tool: 56 11. Recreational Drug Use: Never Drug Type: Tobacco Use: Former Smoker Tobacco Type: Amount or Packs/day: How Many Years: Alcohol Use: Yes Frequency: Quant:
== END | disposition home or self-care (01) ==
LOC: PAIN 10:12
DX: M53.3 Sacrococcygeal disorders, not elsewhere classified (principal); M48.08 Spinal stenosis, sacral and sacrococcygeal region; G89.29 Other chronic pain; I10 Essential (primary) hypertension; I48.2 Chronic atrial fibrillation; F32.9 Major depressive disorder, single episode, unspecified; Z87.19 Personal history of other diseases of the digestive system; Z79.01 Long term (current) use of anticoagulants; Z79.899 Other long term (current) drug therapy; Z98.890 Other specified postprocedural states; Z79.891 Long term (current) use of opiate analgesic; Z87.891 Personal history of nicotine dependence
CPT/HCPCS: G0260

== ENCOUNTER 2019-06-18 15:10 | Emergency (ER) | payer OTHER, MEDICARE ==
[~2019-06-18] VITALS: Ht 165.1 cm; Wt 73.9 kg
[2019-06-18 16:33] LABS: ABSOLUTE NEUTROPHILS 8.2 thou/uL (1.4-8.2); BASOPHILS 0.8 % (0.0-2.0); EOSINOPHILS 0.7 % (0.0-3.0); HEMATOCRIT 42.9 % (37.0-47.0); HEMOGLOBIN 14.6 gm/dL (12.0-15.0); LYMPHOCYTES 8.3 % (24.0-44.0); MCH 35.1 pg (26.0-34.0); MCV 103.3 fL (80.0-100.0); MONOCYTES 3.6 % (1.0-8.0); PLATELET COUNT 165 thou/uL (150-400); POLYS 86.6 % (36.0-66.0); RBC 4.15 mil/uL (4.20-5.00); WBC 9.5 thou/uL (4.0-11.0)
[2019-06-18 16:41] LABS: ANION GAP 10 mmol/L (7-16); BUN 25 mg/dL (7-18); CALCIUM 9.6 mg/dL (8.5-10.1); CHLORIDE 102 mmol/L (98-107); CO2 25 mmol/L (21-32); CREATININE 1.4 mg/dL (0.6-1.0); GLUCOSE 109 mg/dL (74-106); POTASSIUM 4.3 mmol/L (3.5-5.1); SODIUM 137 mmol/L (136-145)
[2019-06-18 16:51] LABS: ALBUMIN 3.8 g/dL (3.4-5.0); MAGNESIUM 1.9 mg/dL (1.8-2.4); SGOT 19 U/L (15-37); SGPT 18 U/L (30-65); TOTAL BILIRUBIN 0.9 mg/dL (<0.1-1.0); TOTAL PROTEIN 7.2 g/dL (6.4-8.2); TROPONIN-I <0.06 ng/mL (<0.06)
[2019-06-18] MEDS ORDERED: CLONIDINE0.1 PO (17:21)
[2019-06-18 18:02] VITALS: BP 140/79
--- NOTE | 2019-06-19 07:49 | EKG ---
[place] [place] [place] [address] ELECTROCARDIOGRAM REPORT Name: PERLA RIOS [id number] Admission: 06/18/19 Attend Phys: Discharge: 06/18/19 Date of : 35 Report #: [id number] THIS REPORT FOR: //name// [facility] ED Test Date: 2019-06-18 Test Time: 16:10:17 Pat Name: PERLA RIOS Department: Room: Gender: F Regulatory Affairs Director: as : 1935 Requested By: Dio Green Order Number: [id number] MD: Regino Mejia Measurements Intervals [place] Rate: 77 P: 157 CT: 233 QRS: -29 QRSD: 100 T: 2 QT: 415 QTc: 470 Interpretive Statements Atrial fibrillation Poor R wave progression Compared to ECG 02/14/2017 17:06:22 Atrial fibrillation has replaced sinus bradycardia Electronically Signed On 06-19-2019 7:49:29 CDT by Regino Mejia [email or web address] <ELECTRONICALLY SIGNED> By: Regino Mejia MD, [facility] 06/19/19 0749 1610 1610 Regino Mejia MD, FACC /EPI
== END 2019-06-18 17:30 | disposition home or self-care (01) ==
LOC: ER 15:10
PROVIDERS: Emergency Medicine
DX: I10 Essential (primary) hypertension (principal); F32.9 Major depressive disorder, single episode, unspecified; I48.91 Unspecified atrial fibrillation; Z90.710 Acquired absence of both cervix and uterus; Z90.49 Acquired absence of other specified parts of digestive tract; Z98.41 Cataract extraction status, right eye; Z98.42 Cataract extraction status, left eye; Z96.652 Presence of left artificial knee joint; Z87.891 Personal history of nicotine dependence

== ENCOUNTER → 2019-07-24 | Outpatient (CLI) | payer OTHER, MEDICARE ==
[~2019-07-24] VITALS: Ht 162.6 cm; Wt 77.1 kg
[~2019-07-24] MED LIST changes: +AMLODIPINE BESY10 MG PO; +CLONIDINE0.1 PO
[2019-07-24 10:09] VITALS: BP 150/75
--- NOTE | 2019-07-24 10:10 | NUR ---
Pain Clinic Assessment: 1. History of Osteoarthritis: back History of Rheumatoid Arthritis: none 2. Height: 5 ft. 4 in. 162.6 cm. Weight: 170.0 lb. oz. 77.112 kg. Patient's BMI: 29.2 3. Vital Signs: BP: 150/75 Pulse: 73 Resp: 14 Temp: 02 Sat: 98 ECG Mon: 4. Pain Intensity: 4 WITH MED 5. Fall Risk: Dizziness: N Needs help standing or walking: N Fallen in the last 3 months: N Fall risk comments: 6. Patient on Blood Thinner: eliquis 7. History of Hypertension: Y 8. Opioid Therapy greater than 6 weeks: Y Opiate Contract Signed: 07/30/18 9. Risk Assessment Tool Provided: Opioid Risk Tool 10. Functional Assessment Tool: 56 11. Recreational Drug Use: Never Drug Type: Tobacco Use: Former Smoker Tobacco Type: Amount or Packs/day: How Many Years: Alcohol Use: Yes Frequency: Daily Quant: 1 DRINK IN EVENING
--- NOTE | 2019-08-03 08:54 | HPC ---
[facility] [place] [address] PAIN MANAGEMENT CONSULTATION Name: PERLA RIOS Room #: REG [facility] Jodi#: [id number] Admission: 07/24/19 Attend Phys: Mona Louis MD Discharge: Date of : 35 Report #: [id number] THIS REPORT FOR: //name// CC: Mona Galindo DATE OF SERVICE: 07/24/2019 CHIEF COMPLAINT: Here for renewal of her medications. HISTORY: The patient is an 83-year-old female who has been followed in the pain clinic because of chronic pain. She has chronic back pain, which has been quite problematic. Pain is worse when she is standing. It becomes quite problematic after about 5 minutes. Notes that the pain is exacerbated with bending, cooking and other activities. She has returned today for renewal of her medication. She has undergone injections in the SI joint area to help quell her pain. She notes that the pain improves with rest as well as sitting down. She finds that the hydrocodone is beneficial and is not causing any problems. She is able to think clearly with its use. Keeps her medications in a guarded area. She is aware that opioids can be problematic for some patients. She feels her medications are working well and keeps them in a guarded area. ALLERGIES: No known drug allergies. CURRENT MEDICATIONS: Prednisone 10 mg daily, amiodarone 200 mg, Vasotec 100 mg, Eliquis 5 mg b.i.d., hydrocodone 10/325, Levoxyl 112 mcg daily. PAIN CLINIC ASSESSMENT AND PQRS: 1. The patient has history of osteoarthritis involving her low back. She has complications associated with spinal stenosis in her low back area. She has also had some SI joint pains. She is not being treated for rheumatoid arthritis. 2. Height 5 feet 4 inches, weight 170 pounds, BMI is 29.2. 3. Vital Signs: Blood pressure 150/75, pulse 73, respiratory rate 14, room air saturation is 98%. 4. Pain intensity, 4/10 with medications. 5. Fall risk. The patient has not fallen in the last 3 months. 6. Blood thinner. The patient is on Eliquis. 7. History of hypertension. The patient is being treated for hypertension. 8. Opioids greater than 6 weeks. The patient receives medication from one source, the pain clinic. 9. Risk assessment tool, low for opioid use. 10. Functional assessment tool, 56/70. 11. Recreational drug use, the patient denies. 12. The patient is a former tobacco user. 13. Alcohol: The patient drinks about one alcoholic beverage in the evening. [address] [address] PAIN MANAGEMENT CONSULTATION Name: PERLA RIOS Room #: REG CL Jodi#: [id number] Admission: 07/24/19 Attend Phys: Mona Louis MD Discharge: Date of : 35 Report #: [id number] PHYSICAL EXAMINATION: GENERAL: The patient is a well-developed, well-nourished, white female. Appears her stated age. She is alert and oriented x 3. Her affect is appropriate. Speech is fluent. HEENT: Normocephalic, atraumatic. Extraocular eye muscles intact. The patient is accompanied by her daughter. She is having pain and discomfort in the lower portion of her back. Has signs consistent with spinal stenosis with prolonged standing. MUSCULOSKELETAL: Muscle strength in the upper extremity joints judged to be 4+/5 for the major muscle groups in the upper extremity and in the lower extremity 4+/5 for the major muscle groups in the lower extremity. The patient moves with a slow gait. IMPRESSION: 1. History of sacroiliac joint dysfunction. 2. History of spinal stenosis. 3. Hypertension. 4. Chronic atrial fibrillation. 5. Depression. 6. History of pancreatitis. RECOMMENDATIONS: We discussed treatment options with the patient. Risks and benefits of opioid use were discussed. They could include dependency and become less effective over time secondary to development of tolerance. The patient feels medications are working reasonably well. She is not having any real problems with the medication. She would like to continue with their use. A script for hydrocodone 10 mg 1 p.o. t.i.d. to q.i.d., a total of 100 tablets have been provided. The patient will take these medications for the next 2 months. She will follow up in the pain clinic as needed. We would like to thank you for letting us participate in her care. We hope she continues to improve. <ELECTRONICALLY SIGNED> By: Mona Louis MD 08/03/19 0854 1659 0430 Mona Louis MD /[facility]
== END ==
LOC: PAIN 06:47
DX: M54.9 Dorsalgia, unspecified (principal); M48.00 Spinal stenosis, site unspecified; I10 Essential (primary) hypertension; I48.2 Chronic atrial fibrillation; F32.9 Major depressive disorder, single episode, unspecified; K85.90 Acute pancreatitis without necrosis or infection, unspecified

== ENCOUNTER → 2019-09-25 | Outpatient (CLI) | payer OTHER, MEDICARE ==
[~2019-09-25] VITALS: Ht 162.6 cm; Wt 78.9 kg
[2019-09-25 10:18] VITALS: BP 151/82
--- NOTE | 2019-09-25 10:44 | NUR ---
Pain Clinic Assessment: 1. History of Osteoarthritis: BACK History of Rheumatoid Arthritis: none 2. Height: 5 ft. 4 in. 162.6 cm. Weight: 174.0 lb. oz. 78.926 kg. Patient's BMI: 29.9 3. Vital Signs: BP: 151/82 Pulse: 72 Resp: 18 Temp: 02 Sat: 100 ECG Mon: 4. Pain Intensity: 4 5. Fall Risk: Dizziness: N Needs help standing or walking: N Fallen in the last 3 months: N Fall risk comments: 6. Patient on Blood Thinner: eliquis 7. History of Hypertension: Y 8. Opioid Therapy greater than 6 weeks: Y Opiate Contract Signed: 07/30/18 9. Risk Assessment Tool Provided: Opioid Risk Tool 10. Functional Assessment Tool: 56 11. Recreational Drug Use: Never Drug Type: Tobacco Use: Former Smoker Tobacco Type: Amount or Packs/day: How Many Years: Alcohol Use: Yes Frequency: Daily Quant: 1
--- NOTE | 2019-09-28 11:55 | HPC ---
[facility] [address] [place] [address] PAIN MANAGEMENT CONSULTATION Name: PERLA RIOS Room #: REG [facility] M.R.#: [id number] Admission: 09/25/19 Attend Phys: Ju Peraza Discharge: Date of : 35 Report #: [id number] THIS REPORT FOR: //name// CC: Ju Galindo MD DATE OF SERVICE: 09/25/2019 CHIEF COMPLAINT: Chronic back pain. HISTORY OF PRESENT ILLNESS: This is a very pleasant 83-year-old female who returns to the pain clinic today for refill of her medications. She reports her pain score of 4/10, mostly in her mid to low back. It is an aching soreness, worse with standing and walking. She finds the medication beneficial as well as sitting, but she is telling me that she feels that her back pain has been increasing more. She is finding it harder to wash dishes. She needs to rest in between her activities more frequently. She denies problems with constipation from her medications. The patient does report she has been seeing her manager title and is going to see a hockey scout. She feels like she has been having some increased difficulty breathing and she is having further testing. She shows me her new compression hose that she is wearing that help with some of her edema in her lower extremities. ALLERGIES: No known drug allergies. CURRENT LIST OF MEDICATIONS: 1. Hydrocodone 10/325 p.r.n. 2. Amlodipine 10 mg daily. 3. Prednisone 10 mg daily. 4. Pacerone 100 mg daily. 5. Eliquis 5 mg b.i.d. 6. Synthroid 112 mcg daily. PQRS: 1. She has a history of osteoarthritis in her lumbar spine. Denies any rheumatoid arthritis. 2. Height is 5 feet 4 inches, weight is 174, BMI is 29. 3. Vital signs 151/82, pulse is 72, respirations 18, oxygen sat is 100. 4. Pain score is 4/10. 5. Denies dizziness, does not need help walking or standing, has not fallen in the last 3 months. 6. The patient is on Eliquis as well as takes medicine for hypertension. [address] [address] PAIN MANAGEMENT CONSULTATION Name: PERLA RIOS Room #: REG [facility] M.R.#: [id number] Admission: 09/25/19 Attend Phys: Ju Peraza Discharge: Date of : 35 Report #: [id number] 7. Opioid therapy is greater than 6 weeks; therefore, an opioid signed contract is on the chart. Her risk assessment tool is low. Functional assessment is 56/70. 8. Recreational drug use, she denies. She is a former smoker and occasionally drinks alcohol. According to the prescription monitoring system, the patient is filling appropriately for her medication in a timely fashion using only one pharmacy and one physician. According to the prescription monitoring system, her morphine mEq is 30-40 per day. PHYSICAL EXAMINATION: GENERAL: This is a well-developed, well-nourished, well-hydrated 83-year-old female who appears her stated age, placing her current pain score at 4/10. HEENT: Normocephalic, atraumatic. Extraocular eye muscles are intact. Mucous membranes are moist. MUSCULOSKELETAL: She has 1+ edema in her bilateral extremities today. Wearing compression stockings. Her lower extremity strength judged to be 4/5 in all major muscle groups. She walks with a slow antalgic gait. She has tenderness in her lumbar spine with no radicular component today. IMPRESSION: 1. History of spinal stenosis. 2. Low back pain. 3. History of sacroiliac joint dysfunction. 4. Hypertension. 5. Chronic atrial fibrillation. 6. Complex medical management under terms of written opioid agreement. We reviewed the fact that opiate medications are being used to provide analgesia adequate to support activities of daily living, not attempting to achieve a specific pain score on the 0-10 Visual Analog Scale. The current opiate medications are providing sufficient analgesia to allow the patient to participate in activities of daily living. The patient is not exhibiting any aberrant behavior suggestive of drug diversion. The patient is not having any adverse reactions to medications. The patient is not suffering from daytime somnolence or mental acuity changes. The patient is managing opiate-induced constipation with appropriate ljzu-swn-womsrvi agents and dietary considerations. The patient was counseled on concern for caution with operating a motor vehicle while using opiate medications. A physical exam was performed and the patient's functional status was evaluated. All patients with back pain were advised against the bed rest greater than 4 days and were advised to return to normal activities. Pain score assessment was noted and the treatment plan was reviewed with the patient. All current medications, both prescribed and OTC were reviewed and reconciled on the [facility] [address] [place] [address] PAIN MANAGEMENT CONSULTATION Name: PERLA RIOS Room #: REG Mamta Zapata#: [id number] Admission: 09/25/19 Attend Phys: Ju ARIELA Peraza Discharge: Date of : 35 Report #: [id number] electronic medical record. Tobacco screening was accomplished and smoking cessation was advised when indicated. BMI was noted and diet/exercise modification was recommended for all patients following outside normal parameters. I reviewed with the patient today their responsibilities to safeguard prescription medications, reviewed their responsibility to utilize medications only as prescribed by the physician. They are to seek and receive pain medications only from 1 physician group ( [facility]). They are to use 1 pharmacy and keep the clinic informed if they change pharmacies. Their responsibilities include making followup visits in a timely fashion and to avoid abrupt discontinuation of medication usage. Their responsibilities further include bringing their medications (bottles from the pharmacy with residual pills) to the visit for possible confirmation of pill counts and the patient understands it is their responsibility to submit to random drug screens to ensure both that the medications prescribed are present, and that no other controlled substances are present. All prescriptions provided today were generated electronically. PLAN: 1. We discussed treatment options with the patient today. The patient finds the hydrocodone beneficial in controlling most of her pain. She does report that there are more days that she is having increasing pain. She is using heat and ice as well as her medications. She knows she is unable to have any surgeries due to her cardiac issues. She will continue her 3-4 hydrocodone a day. Scripts given for #100 for today and 4-week release. 2. The patient will be seen in 2 months' time. She verbalizes understanding of this. She will call for appointment when needed. 3. The patient is seen in collaboration with Dr. Anthony Louis. <ELECTRONICALLY SIGNED> By: Ju Peraza 09/28/19 1155 1115 120 Ju faust
== END ==
LOC: PAIN 06:46
DX: M48.061 Spinal stenosis, lumbar region without neurogenic claudication (principal); M54.5 Low back pain; I10 Essential (primary) hypertension; I48.20 Chronic atrial fibrillation, unspecified; Z79.891 Long term (current) use of opiate analgesic

== ENCOUNTER → 2019-11-25 | Outpatient (CLI) | payer OTHER, MEDICARE ==
[~2019-11-25] VITALS: Ht 162.6 cm; Wt 79.9 kg
[~2019-11-25] MED LIST changes: +KLOR-CON 10 ER10 MEQ PO; +OXYCODON-ACETA1 EAC1 PO; +TORSEMIDE10 MG PO
[2019-11-25 13:17] VITALS: BP 132/75
--- NOTE | 2019-11-25 13:30 | NUR ---
Pain Clinic Assessment: 1. History of Osteoarthritis: BACK History of Rheumatoid Arthritis: Not Applicable 2. Height: 5 ft. 4 in. 162.6 cm. Weight: 176.2 lb. oz. 79.924 kg. Patient's BMI: 30.2 3. Vital Signs: BP: 132/75 Pulse: 87 Resp: 16 Temp: 02 Sat: 100 ECG Mon: 4. Pain Intensity: 5 5. Fall Risk: Dizziness: N Needs help standing or walking: N Fallen in the last 3 months: N Fall risk comments: 6. Patient on Blood Thinner: ELIQUIS 7. History of Hypertension: Y 8. Opioid Therapy greater than 6 weeks: Y Opiate Contract Signed: 07/30/18 9. Risk Assessment Tool Provided: Opioid Risk Tool 10. Functional Assessment Tool: 56 11. Recreational Drug Use: Never Drug Type: Tobacco Use: Former Smoker Tobacco Type: Amount or Packs/day: How Many Years: Alcohol Use: Yes Frequency: Daily Quant: 1
--- NOTE | 2019-11-26 09:12 | HPC ---
[facility] [address] [place] [address] PAIN MANAGEMENT CONSULTATION Name: PERLA RIOS Room #: [facility] [id number] Admission: 11/25/19 Attend Phys: Ju Peraza Discharge: Date of : 35 Report #: [id number] THIS REPORT FOR: //name// CC: Ju Galindo MD DATE OF SERVICE: 11/25/2019 CHIEF COMPLAINT: Chronic back pain. HISTORY OF PRESENT ILLNESS: This is a very pleasant 84-year-old female who returns to the pain clinic today for treatment of her pain that is located in her lumbar spine. She feels that occasionally she will have sharp, shooting pain that radiates down the back of her legs. Normally, it is an aching, tenderness, soreness that she feels that is worse with prolonged standing. She feels that her pain is not as well controlled as it had in the past. She does not feel that her hydrocodone as effective as it has been requiring her to take 3-4 tablets a day. Her pain score today is 5/10. She is here for refills, but also wondering if there are other options for her. ALLERGIES: No known drug allergies. CURRENT LIST OF MEDICATIONS: Torsemide, potassium, hydrocodone 10/325 three to four a day, amlodipine, prednisone 10 mg, Pacerone, Eliquis, and Levoxyl. PQRS: 1. 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 Denies any rheumatoid arthritis. 2. Height is 5 feet 4 inches, weight is 176, BMI is 30. 3. Vital signs 132/75, pulse is 87, respirations 16, and oxygen sat is 100. 4. Pain score is 5/10. 5. Denies dizziness, does not need help walking or standing, has not fallen in the last 3 months. 6. The patient is on Eliquis and also on hypertension medicines. 7. Opioid therapy is greater than 6 weeks; therefore, an opioid signed contract is on the chart. Risk assessment tool is low. Functional assessment is 56/70. 8. Recreational drug use, she denies. She is a former smoker and occasionally drinks alcohol. According to the prescription monitoring system, the patient is filling appropriately for her medications in a timely fashion. Her current morphine mEq per day is 30. PHYSICAL EXAMINATION: [facility] [address] [place] [address] PAIN MANAGEMENT CONSULTATION Name: PERLA RIOS Room #: REG CLMamta Zapata#: [id number] Admission: 11/25/19 Attend Phys: Ju Peraza Discharge: Date of : 35 Report #: [id number] GENERAL: This is alert and orientated, well-developed, well-nourished 84-year-old female who appears her stated age, placing her current pain score at 5/10 while sitting, 8/10 while standing. HEENT: Normocephalic, atraumatic. Extraocular eye muscles are intact. Mucous membranes are moist. MUSCULOSKELETAL: Her lower extremity strength judged to be 5/5 in all major muscle groups. She walks with a slow antalgic gait. She has tenderness in her lumbar spine that does radiate into her posterior legs. IMPRESSION: 1. Spinal stenosis. 2. Low back pain. 3. History of sacroiliac joint dysfunction. 4. Chronic atrial fibrillation. 5. Hypertension. 6. Complex medical management under terms of written opioid agreement. We reviewed the fact that opiate medications are being used to provide analgesia adequate to support activities of daily living, not attempting to achieve a specific pain score on the 0-10 Visual Analog Scale. The current opiate medications are providing sufficient analgesia to allow the patient to participate in activities of daily living. The patient is not exhibiting any aberrant behavior suggestive of drug diversion. The patient is not having any adverse reactions to medications. The patient is not suffering from daytime somnolence or mental acuity changes. The patient is managing opiate-induced constipation with appropriate [id number] agents and dietary considerations. The patient was counseled on concern for caution with operating a motor vehicle while using opiate medications. PLAN: 1. We discussed treatment options with the patient today. The patient is finding her hydrocodone is not as beneficial as it had been the past. I believe it would be beneficial for an opioid rotation. We will rotate her to oxycodone 7.5/325 allowing her 3-4 tablets a day, #100. This will increase her morphine mEq to 40 MME per day, but it is a different opioid than her body is used to seeing, so I think that she will have better pain control with this rotation. The patient encouraged to call if she does have difficulties. 2. Scripts given for 2-month supply for this medication. The patient is seen today in collaboration with Dr. vEan Louis. The patient will call as needed or return in 2 months for a followup appointment. <ELECTRONICALLY SIGNED> By: Ju Peraza 11/26/19 0912 [id number] Ju Peraza /juju
== END ==
LOC: PAIN 10:53
DX: M48.061 Spinal stenosis, lumbar region without neurogenic claudication (principal); G89.29 Other chronic pain; I48.20 Chronic atrial fibrillation, unspecified; I10 Essential (primary) hypertension; Z79.891 Long term (current) use of opiate analgesic; Z79.899 Other long term (current) drug therapy

== ENCOUNTER → 2019-12-02 | Outpatient (CLI) | payer OTHER, MEDICARE ==
[~2019-12-02] VITALS: Ht 162.6 cm; Wt 78.7 kg
[2019-12-02 10:37] VITALS: BP 156/77
--- NOTE | 2019-12-02 10:46 | NUR ---
Pain Clinic Assessment: 1. History of Osteoarthritis: BACK History of Rheumatoid Arthritis: Not Applicable 2. Height: 5 ft. 4 in. 162.6 cm. Weight: 173.6 lb. oz. 78.744 kg. Patient's BMI: 29.8 3. Vital Signs: BP: 156/77 Pulse: 74 Resp: 16 Temp: 02 Sat: 99 ECG Mon: 4. Pain Intensity: 5 5. Fall Risk: Dizziness: N Needs help standing or walking: N Fallen in the last 3 months: N Fall risk comments: 6. Patient on Blood Thinner: ELIQUIS 7. History of Hypertension: Y 8. Opioid Therapy greater than 6 weeks: Y Opiate Contract Signed: 07/30/18 9. Risk Assessment Tool Provided: Opioid Risk Tool 10. Functional Assessment Tool: 56 11. Recreational Drug Use: Never Drug Type: Tobacco Use: Former Smoker Tobacco Type: Amount or Packs/day: How Many Years: Alcohol Use: Yes Frequency: Daily Quant: WHISKEY NIGHTLY.
--- NOTE | 2019-12-03 08:36 | HPC ---
[facility] [address] [place] [address] PAIN MANAGEMENT CONSULTATION Name: PERLA RIOS Room #: REG [facility] Jodi#: [id number] Admission: 12/02/19 Attend Phys: Ju Peraza Discharge: Date of : 35 Report #: [id number] THIS REPORT FOR: //name// CC: Ju Galindo MD DATE OF SERVICE: 12/02/2019 CHIEF COMPLAINT: Chronic back pain. HISTORY OF PRESENT ILLNESS: This is a very pleasant 84-year-old female who we saw just last week and rotated her opioid medications because she felt that they had become ineffective, so we transitioned her to oxycodone 7.5 mg, which we thought was a slightly stronger equivalent dose compared to her hydrocodone. The patient reports that she had taken a pill and it made her feel quite drowsy and woozy so she sat down in a chair and slept for several hours. She feels that medication is too strong for her. She did not try to split the dose in half and she felt like the pain relief was not significant enough to combat all the side effects that she was experiencing. Today, she would like to return back to her hydrocodone medication. She has brought with her, her pill bottle with oxycodone as well as the 4-week release prescription of oxycodone. The patient continues to have low back pain that is sharp, aching and tender, rating her pain score at 5/10. It is worse with prolonged standing and walking as long as she does take medication and sits, she does have good pain relief. ALLERGIES: No known drug allergies. CURRENT LIST OF MEDICATIONS: Oxycodone 7.5, torsemide, potassium, amlodipine, prednisone, amiodarone, Eliquis, and Levoxyl. PQRS: 1. She has a history of osteoarthritis in her lumbar spine. Denies any rheumatoid arthritis. 2. Height is 5 feet 4 inches, weight is 173. BMI is 29. 3. Vital signs 156/77, pulse is 74, respirations 16, oxygen sat is 99. 4. Pain score is 5/10. 5. Denies dizziness, does not need help walking or standing, has not fallen in the last 3 months. 6. The patient is on Eliquis as well as hypertension medicines. Opioid therapy is greater than 6 weeks; therefore, an opioid signed contract is on the chart. Risk assessment tool is low. Functional assessment is 56/70. 7. Recreational drug use, she denies. She is a former smoker and drinks one [place] [address] PAIN MANAGEMENT CONSULTATION Name: PERLA RIOS Room #: REG [facility] Zapata#: [id number] Admission: 12/02/19 Attend Phys: Ju Peraza Discharge: Date of : 35 Report #: [id number] According to the prescription monitoring system, the patient did fill her oxycodone last week. PHYSICAL EXAMINATION: GENERAL: This is an alert and orientated, well-developed 84-year-old female who appears her stated age, placing her current pain score at 5/10. HEENT: Normocephalic, atraumatic. Extraocular eye muscles are intact. Mucous membranes are moist. MUSCULOSKELETAL: She walks with a slow antalgic gait, has tenderness in her lumbar spine that radiates down her posterior legs. Lower extremity strength judged to be 5/5 in all major muscle groups. IMPRESSION: 1. Spinal stenosis. 2. Low back pain. 3. History of sacroiliac joint dysfunction. 4. Chronic atrial fibrillation, on anticoagulation therapy. 5. Complex medical management under terms of written opioid agreement. PLAN: 1. We discussed treatment options with the patient today. The patient would like to return to her hydrocodone dose. She has brought her oxycodone medicine with her. We will have her to dispose of this at the pharmacy downstairs. They do have a disposal box in the pharmacy. We will destroy her 4-week prescription. Dr. Louis did see the patient as well today and explained that we will give her hydrocodone 10/325, which she was on previously, but we will up it to enable the patient to take 4 tablets a day if she is needing to, but encouraged lowest most effective dose if she is able to get by with 2 or 3 that is beneficial in controlling her pain. We encouraged that. 2. Family member is present with her today questioning what the plans may be when the patient's disease process progresses, that she is unable to walk, and wondering what the process is for coming to appointments. I explained to her that if she is in a wheelchair, she will need to come still every 2 months for her medications in her wheelchair. There are home health agencies that can help with care at home and aid with getting her here also in a wheelchair van. They verbalized understanding. We can address if and when the need arises. 3. The patient is seen in collaboration with Dr. Anthony Louis. The patient will return in 2 months. <ELECTRONICALLY SIGNED> By: Ju Peraza 12/03/19 0836 [id number] 01 Ju Peraza /juju
== END ==
LOC: PAIN 06:51
DX: M48.061 Spinal stenosis, lumbar region without neurogenic claudication (principal); I48.91 Unspecified atrial fibrillation; Z79.891 Long term (current) use of opiate analgesic; Z88.8 Allergy status to other drugs, medicaments and biological substances

== ENCOUNTER → 2020-01-29 | Outpatient (CLI) | payer OTHER, MEDICARE ==
--- NOTE | 2020-01-29 11:08 | NUR ---
Pain Clinic Assessment: 1. History of Osteoarthritis: BACK History of Rheumatoid Arthritis: Not Applicable 2. Height: ft. in. cm. Weight: lb. oz. kg. Patient's BMI: 3. Vital Signs: BP: Pulse: Resp: Temp: 02 Sat: ECG Mon: 4. Pain Intensity: 5 5. Fall Risk: Dizziness: N Needs help standing or walking: N Fallen in the last 3 months: N Fall risk comments: 6. Patient on Blood Thinner: SOFYQUIS 7. History of Hypertension: Y 8. Opioid Therapy greater than 6 weeks: Y Opiate Contract Signed: 07/30/18 9. Risk Assessment Tool Provided: LOW 10. Functional Assessment Tool: 56 11. Recreational Drug Use: Never Drug Type: Tobacco Use: Former Smoker Tobacco Type: Cigarettes Amount or Packs/day: 1 WEEKLY How Many Years: 10 Alcohol Use: Yes Frequency: Daily Quant: TIM STEVENS
--- NOTE | 2020-02-05 16:39 | HPC ---
[facility] [place] [address] PAIN MANAGEMENT CONSULTATION Name: PERLA RIOS Room #: REG EDGAR HessCandieAlia.#: [id number] Admission: 01/29/20 Attend Phys: Mona Louis MD Discharge: Date of : 35 Report #: [id number] THIS REPORT FOR: cc: Keith Galindo MD,Keith Louis,Mona Gordon MD ~ CC: Mona Galindo DATE OF SERVICE: 01/29/2020 CHIEF COMPLAINT: The medicine continues to be helpful and would like it renewed. HISTORY: The patient is an 84-year-old female who has been seen in the pain clinic because of chronic pain. She rates her pain today as 5/10. She continues to have pain and discomfort in the lower back. She describes it as sharp, aching, tender and sore. Standing for a prolonged period of time exacerbates her discomfort. Walking can be problematic. Notes pain improves sometimes when she sits down. ALLERGIES: No known drug allergies. CURRENT MEDICATIONS: Prednisone 10 mg daily, Pacerone 200 mg daily, Eliquis 5 mg b.i.d., levothyroxine 0.112 mg, hydrocodone 10/325 one p.o. q. 4-6 hours p.r.n. pain. PAIN CLINIC ASSESSMENT/PQRS: 1. The patient does have a history of osteoarthritis involving her back. She has had complications associated with spinal stenosis and low back area. She has some SI joint pain. She is not being treated for rheumatoid arthritis. 2. Height 5 feet 4 inches, weight 170 pounds, BMI is 29. 3. Vital signs: Blood pressure is 150/70, pulse 73, respiratory rate 16, saturation 98%. 4. Pain intensity 5/10. 5. Fall history: The patient has not fallen in the last 3 months. 6. Blood thinner. The patient is on Eliquis. 7. Hypertension. The patient is being treated for hypertension. 8. Opioids greater than 6 weeks. [facility]. 9. Risk assessment tool, low for opioid use. 10. Functional assessment tool, 5670. 11. Recreational drug use: The patient denies. 12. The patient is a former smoker. 13. Alcohol: The patient drinks about one alcoholic beverage in the evening. [facility] [address] [place] [address] PAIN MANAGEMENT CONSULTATION Name: PERLA RIOS Room #: REG [facility] Jodi#: [id number] Admission: 01/29/20 Attend Phys: Mona Louis MD Discharge: Date of : 35 Report #: [id number] PHYSICAL EXAMINATION: GENERAL: The patient is a well-developed, well-nourished white female. Appears her stated age. She is alert and oriented x 3. Her affect is appropriate. HEENT: Normocephalic, atraumatic. Extraocular eye muscles intact. The patient is accompanied by her daughter. EXTREMITIES: The patient's physical signs and complaints are consistent with spinal stenosis with exacerbation of pain with prolonged standing. MUSCULOSKELETAL: The muscle strength in the upper areas are 4+/5 for the major muscle groups in the upper extremity and 4+/5 for the major muscle groups in the lower extremity. The patient walks slowly and somewhat antalgic gait. IMPRESSION: 1. History of sacroiliac joint dysfunction. 2. History of spinal stenosis. 3. Hypertension. 4. Chronic atrial fibrillation. 5. Depression. 6. History of pancreatitis. RECOMMENDATIONS: We discussed the treatment option with the patient. Risks and benefits of opioids were again discussed with the patient. She is aware that opioid medications can become less effective as time goes on. She feels her medications are helpful and enable her to engage in activities, she would not be able to without their use. She keeps her medications in a guarded area. A script for her medications will be rewritten. She will call us if she has any concerns. A script for her medications of hydrocodone 10/325 one p.o. t.i.d. to q.i.d. have been provided. The patient receives 100 tablets. She will continue with the medication for the next 2 months. A script for 2-month allotment of medication has been prescribed. She will call us if she has any concerns. We would like to thank you for letting us participate in her care. The patient states that she is staying socially isolated secondary to the COVID-[address] in [address] order. <ELECTRONICALLY SIGNED> By: Mona Louis MD 02/05/20 1639 [id number] Mona Louis MD /nt
== END ==
LOC: PAIN 10:37
DX: M54.5 Low back pain (principal); I48.91 Unspecified atrial fibrillation; F32.9 Major depressive disorder, single episode, unspecified; Z87.39 Personal history of other diseases of the musculoskeletal system and connective tissue; Z83.79 Family history of other diseases of the digestive system; Z79.899 Other long term (current) drug therapy

== ENCOUNTER → 2020-03-30 | Outpatient (CLI) | payer OTHER, MEDICARE ==
[~2020-03-30] VITALS: Ht 162.6 cm; Wt 78.3 kg
[2020-03-30 13:04] VITALS: BP 157/67
--- NOTE | 2020-03-30 13:20 | NUR ---
Pain Clinic Assessment: 1. History of Osteoarthritis: BACK History of Rheumatoid Arthritis: Not Applicable 2. Height: 5 ft. 4 in. 162.6 cm. Weight: 172.6 lb. oz. 78.291 kg. Patient's BMI: 29.6 3. Vital Signs: BP: 157/67 Pulse: 81 Resp: 16 Temp: 02 Sat: 98 ECG Mon: 4. Pain Intensity: 8-9 5. Fall Risk: Dizziness: N Needs help standing or walking: N Fallen in the last 3 months: N Fall risk comments: 6. Patient on Blood Thinner: ELIQUIS 7. History of Hypertension: Y 8. Opioid Therapy greater than 6 weeks: Y Opiate Contract Signed: 07/30/18 9. Risk Assessment Tool Provided: LOW 10. Functional Assessment Tool: 56 11. Recreational Drug Use: Never Drug Type: Tobacco Use: Former Smoker Tobacco Type: Amount or Packs/day: How Many Years: Alcohol Use: Yes Frequency: Quant:
--- NOTE | 2020-04-11 09:03 | HPC ---
[facility] [place] [address] PAIN MANAGEMENT CONSULTATION Name: PERLA RIOS Room #: REG EDGAR Arellano.#: [id number] Admission: 03/30/20 Attend Phys: Mona Louis MD Discharge: Date of : 35 Report #: [id number] THIS REPORT FOR: cc: Keith Galindo MD, Neal A. MD Brown,Mona Gordon MD ~ CC: Mona Galindo DATE OF SERVICE: 03/30/2020 CHIEF COMPLAINT: Here for medication renewal. HISTORY: The patient is an 84-year-old female who has been followed in the pain clinic because of chronic pain and discomfort. She has returned for renewal of her medications. As you may recall, she has had chronic low back pain. She notes that her pain is worse in the low back and mid back area. She notes some sharp, aching pain with tenderness. She scores her pain as a 8-9/10. Prolonged standing can make the pain worse. Walking is problematic. She feels that her medications are helpful. She finds that rest and sitting are helpful. She has returned today and would like to have her medications renewed. ALLERGIES: No known drug allergies. CURRENT MEDICATIONS: Prednisone 10 mg daily, Pacerone 200 mg daily, Eliquis 5 mg b.i.d., levothyroxine 0.112 mg, hydrocodone 10/325 one p.o. q. 4-6 hours p.r.n. PAIN CLINIC ASSESSMENT AND PQRS: 1. The patient has a history of osteoarthritis involving her back. She has had complications associated with spinal stenosis in the low back area. She has had SI joint pain. She is not being treated for rheumatoid arthritis. 2. Height 5 feet 4 inches, weight 172 pounds, BMI is 29.6. 3. Vital signs: Blood pressure 157/67, pulse 81, respiratory rate 16, room air saturation 98%. 4. Pain intensity 8-9/10. 5. Fall history: The patient has not fallen in the last 3 months. 6. Blood thinner. The patient is on Eliquis. 7. Hypertension. The patient is being treated for hypertension. 8. Opioids greater than 6 weeks. The [facility]. 9. Risk assessment tool, low for opioid use. 10. Functional assessment tool, 56/70. 11. Recreational drugs. The patient denies. 12. Tobacco: The patient is a former smoker. 13. Alcohol: The patient occasionally drinks alcoholic beverages. [address] [address] PAIN MANAGEMENT CONSULTATION Name: PERLA RIOS [facility] [id number] Admission: 03/30/20 Attend Phys: Mona Louis MD Discharge: Date of : 35 Report #: [id number] PHYSICAL EXAMINATION: GENERAL: The patient is a well-developed, well-nourished 84-year-old female, who appears her stated age. She is alert and oriented x 3. Her affect is appropriate. Speech is fluent. HEENT: Normocephalic, atraumatic. Extraocular eye muscles intact. The patient is accompanied by her daughter. MUSCULOSKELETAL: Upper extremity muscle strength judged to be 4/5. The patient does have findings physically, which are consistent with spinal stenosis. Lower extremity muscle strength 4+/5 for the major muscle groups in the lower extremity. Pain is exacerbated with prolonged standing. The patient walks with a slight antalgic gait. IMPRESSION: 1. History of sacroiliac joint dysfunction. 2. History of spinal stenosis. 3. Hypertension. 4. Chronic atrial fibrillation. 5. Depression. 6. History of pancreatitis. RECOMMENDATIONS: We discussed treatment options with the patient and her relative. We will continue with her medications of hydrocodone 10/325 one p.o. q.i.d. She will also continue with her other medications for thyroid disease as well as her cardiac condition. A script for her medications has been sent to the pharmacy. She will follow up in 2 months. We would like to thank you for letting us participate in her care. We hope she continues to improve. <ELECTRONICALLY SIGNED> By: Mona Louis MD 04/11/20 0903 [id number] Mona Louis MD /nt
== END ==
LOC: PAIN 07:05
DX: M53.3 Sacrococcygeal disorders, not elsewhere classified (principal); M19.90 Unspecified osteoarthritis, unspecified site; M48.00 Spinal stenosis, site unspecified; F11.90 Opioid use, unspecified, uncomplicated; Z79.899 Other long term (current) drug therapy

== ENCOUNTER → 2020-03-30 | Outpatient (CLI) | payer OTHER, MEDICARE | LOC: SJCVC 16:10 | DX: I48.21 Permanent atrial fibrillation (principal); R94.31 Abnormal electrocardiogram [ECG] [EKG]; I11.0 Hypertensive heart disease with heart failure; I50.32 Chronic diastolic (congestive) heart failure; I25.10 Atherosclerotic heart disease of native coronary artery without angina pectoris; E78.5 Hyperlipidemia, unspecified; G47.33 Obstructive sleep apnea (adult) (pediatric); Z90.49 Acquired absence of other specified parts of digestive tract; Z90.710 Acquired absence of both cervix and uterus; Z79.899 Other long term (current) drug therapy; Z87.891 Personal history of nicotine dependence ==